=== PATIENT | male | born 1975 | race Hispanic/Latino ===

== ENCOUNTER 2018-04-03 16:16 | Emergency (ER) | payer OTHER ==
[2018-04-03] MEDS ORDERED: ONDANSETRON HCL 4 MG/2 ML VIAL ONE (16:59)
[2018-04-03] MEDS ORDERED: HYDROMORPHONE 1 MG/1 ML AMP ONE ×2 (17:00→17:03)
[2018-04-03] MEDS ORDERED: ACETAMINOPHEN 325 MG TAB ONE (19:05)
[2018-04-03 19:49] LABS: APPEARANCE,URINE Clear (CLEAR); BILIRUBIN,URINE Negative (NEGATIVE); COLOR,URINE Yellow (YELLOW); GLUCOSE, URINE (UA) Negative (NEGATIVE); KETONES,URINE 40 mg/dL (NEGATIVE); LEUKOCYTE ESTERASE ,URINE Negative (NEGATIVE); NITRATE,URINE Negative (NEGATIVE); OCCULT BLOOD,URINE Negative (NEGATIVE); PH,URINE 6.5 (5.0-8.0); PROTEIN,URINE Trace (NEGATIVE)
== END 2018-04-03 20:02 | disposition home or self-care (01) ==
LOC: EDH 16:16
DX: S02.5XXA Fracture of tooth (traumatic), initial encounter for closed fracture (principal); S46.092A Other injury of muscle(s) and tendon(s) of the rotator cuff of left shoulder, initial encounter; Z90.49 Acquired absence of other specified parts of digestive tract; Z91.030 Bee allergy status; W11.XXXA Fall on and from ladder, initial encounter; Y93.89 Activity, other specified; Y92.89 Other specified places as the place of occurrence of the external cause; Y99.8 Other external cause status
CPT/HCPCS: 70450; 70486; 72125; 73030; 81003; 96374; 96375; 99284; J1170 ×2; J2405